=== PATIENT | male | born 1970 | race Caucasian/White ===

== ENCOUNTER 2017-10-10 14:05 | Outpatient (RCR) | payer OTHER ==
[~2017-10-10 14:05] MED LIST: ALPRAZOLAM1 MG PO; NAPROXEN250 MG PO; NEXIUM40 MG PO; NORCO 10-325 T1 EACH PO
== END 2017-10-26 ==
LOC: PT 14:05
PROVIDERS: ATTEND Podiatrist Foot & Ankle Surgery
DX: S82.61XG Displaced fracture of lateral malleolus of right fibula, subsequent encounter for closed fracture with delayed healing (principal); T85.698A Other mechanical complication of other specified internal prosthetic devices, implants and grafts, initial encounter; M25.571 Pain in right ankle and joints of right foot; M25.671 Stiffness of right ankle, not elsewhere classified; R26.2 Difficulty in walking, not elsewhere classified; M62.81 Muscle weakness (generalized)

== ENCOUNTER → 2024-12-31 | Day surgery (SDC) | payer OTHER ==
[~2024-12-31] MED LIST changes: +ABILIFY5 MG PO; +ACETAMINOPHEN 1000 MG/100 ML 100 ML IV ONE; +FENTANYL CITRATE/PF 100MCG/2 ML INJ ONE; +LEXAPRO10 MG PO; +LIDOCAINE HCL 2% LOCAL INJ 5 ML SDV VIAL INJ ONE; +MAG GLYCINATE100 MG; +MIDAZOLAM HCL 2 MG/2 ML VIAL ONE; +ONDANSETRON HCL INJ 2MG/ML 2ML 2 MG/ML VIAL ONE; +PRAMIPEXOLE D0.25 MG PO; +PROPOFOL IV EMULSION 10 MG/ML 20 ML VIAL ONE; +SEVOFLURANE INHAL SOLN 250 ML PEN BTL ONE; +TRAZODONE HCL50 MG PO
[2024-12-31] MEDS: LACTATED RINGER'S 1,000 ML ONE (05:58)
[2024-12-31 07:47] VITALS: TEMP 97.9
[2024-12-31] MEDS: HYDROCODONE/APAP 5MG-325MG TAB ONE (08:10)
[2024-12-31 08:35] VITALS: BP 140/94; PULSE 78; RESP 16; O2SAT 97
== END | disposition home or self-care (01) ==
LOC: OR 05:06
PROVIDERS: ATTEND Podiatrist Foot & Ankle Surgery
DX: M20.21 Hallux rigidus, right foot (principal); G47.33 Obstructive sleep apnea (adult) (pediatric); I10 Essential (primary) hypertension; K21.9 Gastro-esophageal reflux disease without esophagitis; F41.9 Anxiety disorder, unspecified; F17.210 Nicotine dependence, cigarettes, uncomplicated; Z01.810 Encounter for preprocedural cardiovascular examination; Z01.818 Encounter for other preprocedural examination; Z79.899 Other long term (current) drug therapy
CPT/HCPCS: 28291; 71046; 93005; C1776; J0131; J0690; J2003; J2250; J2405; J2704; J3010; J7121

== ENCOUNTER 2025-01-19 11:21 | Emergency (ER) | payer OTHER ==
[~2025-01-19] VITALS: Ht 172.7 cm; Wt 77.1 kg
[~2025-01-19 11:21] MED LIST changes: -ACETAMINOPHEN 1000 MG/100 ML 100 ML IV ONE; -FENTANYL CITRATE/PF 100MCG/2 ML INJ ONE; -LIDOCAINE HCL 2% LOCAL INJ 5 ML SDV VIAL INJ ONE; -MIDAZOLAM HCL 2 MG/2 ML VIAL ONE; -ONDANSETRON HCL INJ 2MG/ML 2ML 2 MG/ML VIAL ONE; -PROPOFOL IV EMULSION 10 MG/ML 20 ML VIAL ONE; -SEVOFLURANE INHAL SOLN 250 ML PEN BTL ONE
[2025-01-19 11:26] VITALS: TEMP 98
[2025-01-19 11:31] VITALS: PULSE 67; RESP 18
[2025-01-19] MEDS: IBUPROFEN 600 MG TAB PO STA (12:03)
[2025-01-19 12:30] VITALS: BP 105/79; PULSE 62; RESP 18; O2SAT 100
[2025-01-19] MEDS ORDERED: ELIQUIS5 MG PO (12:33)
== END 2025-01-19 12:50 | disposition home or self-care (01) ==
LOC: ER 12:02
DX: I82.432 Acute embolism and thrombosis of left popliteal vein (principal); I82.4Z2 Acute embolism and thrombosis of unspecified deep veins of left distal lower extremity; K21.9 Gastro-esophageal reflux disease without esophagitis; F41.9 Anxiety disorder, unspecified; Z87.19 Personal history of other diseases of the digestive system; F17.210 Nicotine dependence, cigarettes, uncomplicated
CPT/HCPCS: 93971; 99284

== ENCOUNTER 2025-02-14 12:35 | Inpatient (IN) | payer OTHER ==
[2025-02-14] VITALS (14 sets, daily range): BP systolic 110–145; BP diastolic 68–96; PULSE 56–93; RESP 11–20; TEMP 97.8–98.3; O2SAT 100
[~2025-02-14] VITALS: Ht 170.2 cm; Wt 77.1 kg
[~2025-02-14 12:35] MED LIST changes: +ELIQUIS5 MG PO
[2025-02-14] MEDS ORDERED: HEPARIN SOD (PORCINE) 1000 UNIT/ML 30ML ONE (13:25)
[2025-02-14] MEDS ORDERED: SODIUM CHLORIDE 0.9% 1000ML 1,000 ML ONE (13:25)
[2025-02-14] MEDS ORDERED: LIDOCAINE HCL 2% LOCAL 20 ML VIAL ONE (13:25)
[2025-02-14] MEDS ORDERED: NITROGLYCERIN/D5W 200 MCG/ML 250 ML ONE (13:25)
[2025-02-14] MEDS ORDERED: IOPAMIDOL 370 MG/ML 100 ML INFUS..BTL INJ ONE ×2 (13:25→13:52)
[2025-02-14] MEDS ORDERED: HEPARIN SOD/SOD CHLORIDE 2,000 ML ONE (13:25)
[2025-02-14] MEDS ORDERED: VERAPAMIL HCL 2.5 MG/ML 2 ML VIAL ONE (13:25)
[2025-02-14] MEDS: SODIUM CHLORIDE 0.9% 1000ML 1,000 ML IV STA (13:29)
[2025-02-14] MEDS ORDERED: ONDANSETRON HCL INJ 2MG/ML 2ML 2 MG/ML VIAL ONE (13:33)
[2025-02-14] MEDS ORDERED: MIDAZOLAM HCL 2 MG/2 ML VIAL ONE (13:41)
[2025-02-14] MEDS ORDERED: FENTANYL CITRATE/PF 100MCG/2 ML INJ ONE (13:42)
[2025-02-14 13:43] LABS: BASOPHILS % 0.2 % (0.0-1.0); EOSINOPHILS # (AUTO) 0.1 (0.0-0.4); EOSINOPHILS % 2.7 % (0.0-6.0); HEMATOCRIT 36.6 % (38.2-49.6); LYMPHOCYTES # (AUTO) 0.8 (1.0-3.2); LYMPHOCYTES % 18.7 % (18.0-39.1); MEAN CORPUSCULAR HEMOGLOBIN 30.1 pg (28-32); MEAN CORPUSCULAR HGB CONC 32.8 g/dL (31-35); MEAN CORPUSCULAR VOLUME 91.7 fL (81-99); MONOCYTES # (AUTO) 0.4 (0.2-0.8); NEUTROPHILS # (AUTO) 2.8 (2.1-6.9); NEUTROPHILS % 68.9 % (38.7-80.0); PLATELET COUNT 197 x10e3/uL (140-360); RED BLOOD COUNT 3.99 x10e6/uL (4.3-5.7); RED CELL DISTRIBUTION WIDTH 13.1 % (11.7-14.4); WHITE BLOOD COUNT 4.11 x10e3/uL (4.8-10.8)
[2025-02-14 14:01] LABS: INR 1.01; PARTIAL THROMBOPLASTIN TIME 31.5 seconds (23.8-35.5); PROTHROMBIN TIME 13.9 seconds (11.9-14.5)
[2025-02-14 14:09] LABS: ALANINE AMINOTRANSFERASE 11 IU/L (0-55); ALBUMIN 3.8 g/dL (3.5-5.0); ALBUMIN/GLOBULIN RATIO 1.3 (0.8-2.0); ALKALINE PHOSPHATASE 61 IU/L (40-150); ANION GAP 13.9 mmol/L (8-16); BILIRUBIN,TOTAL 0.5 mg/dL (0.2-1.2); BLOOD UREA NITROGEN 7 mg/dL (7-26); BUN/CREATININE RATIO 8 (6-25); CALCIUM 8.6 mg/dL (8.4-10.2); CARBON DIOXIDE 24 mmol/L (22-29); CHLORIDE 106 mmol/L (98-107); CREATINE KINASE 122 IU/L (30-200); CREATININE, SERUM 0.92 mg/dL (0.72-1.25); EST GLOMERULAR FILTRATION RATE 98 ML/MIN (>=60); GLUCOSE 96 mg/dL (74-118); MAGNESIUM 1.9 MG/DL (1.3-2.1); POTASSIUM 3.9 mmol/L (3.5-5.1); SODIUM 140 mmol/L (136-145); TOTAL PROTEIN 6.7 g/dL (6.5-8.1)
[2025-02-14 14:15] LABS: TROPONIN I < 0.001 ng/mL (0-0.300)
[2025-02-14] MEDS: APIXABAN 5 MG TABLET PO SCH (17:48)
[2025-02-14] MEDS ORDERED: ALPRAZOLAM0.5 M1 PO (19:20)
[2025-02-14] MEDS ORDERED: TRAZODONE HCL 50 MG TAB PO PRN (20:30)
[2025-02-14] MEDS: HYDROCORTISONE ACETATE 25 MG/SUPP.RECT SUPP RC PRN (20:51)
[2025-02-14] MEDS: ONDANSETRON HCL 4 MG ORAL DISINTEGRATING TAB PO PRN (22:01)
[2025-02-14] MEDS: TRAZODONE HCL 50 MG TAB PO PRN (22:02)
[2025-02-15 04:52] VITALS: BP 119/76; PULSE 57; RESP 18; TEMP 97.8; O2SAT 100
[2025-02-15] MEDS: ALPRAZOLAM 0.5 MG TAB PO PRN (05:18)
[2025-02-15 06:22] LABS: BASOPHILS % 0.2 % (0.0-1.0); EOSINOPHILS # (AUTO) 0.2 (0.0-0.4); EOSINOPHILS % 3.7 % (0.0-6.0); HEMATOCRIT 34.3 % (38.2-49.6); HEMOGLOBIN 11.4 g/dL (14.0-18.0); LYMPHOCYTES # (AUTO) 0.9 (1.0-3.2); LYMPHOCYTES % 22.2 % (18.0-39.1); MEAN CORPUSCULAR HEMOGLOBIN 30.7 pg (28-32); MEAN CORPUSCULAR HGB CONC 33.2 g/dL (31-35); MEAN CORPUSCULAR VOLUME 92.5 fL (81-99); MONOCYTES # (AUTO) 0.5 (0.2-0.8); MONOCYTES % 11.4 % (4.4-11.3); NEUTROPHILS # (AUTO) 2.5 (2.1-6.9); NEUTROPHILS % 62.3 % (38.7-80.0); PLATELET COUNT 171 x10e3/uL (140-360); RED BLOOD COUNT 3.71 x10e6/uL (4.3-5.7); RED CELL DISTRIBUTION WIDTH 12.8 % (11.7-14.4); WHITE BLOOD COUNT 4.05 x10e3/uL (4.8-10.8)
[2025-02-15 06:55] LABS: TROPONIN I 0.068 ng/mL (0-0.300)
[2025-02-15 07:01] LABS: ALBUMIN 3.3 g/dL (3.5-5.0); ALBUMIN/GLOBULIN RATIO 1.2 (0.8-2.0); ANION GAP 13.8 mmol/L (8-16); BILIRUBIN,TOTAL 0.7 mg/dL (0.2-1.2); CALCIUM 8.5 mg/dL (8.4-10.2); CHOL/HDL RATIO 3.5 (3.9-4.7); CREATININE, SERUM 0.91 mg/dL (0.72-1.25); POTASSIUM 3.8 mmol/L (3.5-5.1)
[2025-02-15 07:25] VITALS: BP 130/82; PULSE 84; RESP 16; TEMP 98.1; O2SAT 99
[2025-02-15] MEDS ORDERED: APIXABAN 5 MG TABLET PO SCH (09:00)
[2025-02-15] MEDS: PANTOPRAZOLE SOD 40 MG TABEC PO SCH (09:04)
[2025-02-15 09:56] VITALS: BP 130/82; PULSE 84; RESP 16; TEMP 98.1; O2SAT 99
== END 2025-02-15 11:58 | disposition home or self-care (01) | DRG 281 ==
LOC: ER 13:04 → ERHOLD 13:39 → MED/SURG3 15:19
PROVIDERS: ADMIT Internal Medicine; ATTEND Internal Medicine
PROC: 4A023N7 Measurement of Cardiac Sampling and Pressure, Left Heart, Percutaneous Approach (ICD-10-PCS; principal; 2025-02-14)
PROC: B2111ZZ Fluoroscopy of Multiple Coronary Arteries using Low Osmolar Contrast (ICD-10-PCS; 2025-02-14)
PROC: B2151ZZ Fluoroscopy of Left Heart using Low Osmolar Contrast (ICD-10-PCS; 2025-02-14)
DX: I21.19 ST elevation (STEMI) myocardial infarction involving other coronary artery of inferior wall (principal); I82.442 Acute embolism and thrombosis of left tibial vein; I25.10 Atherosclerotic heart disease of native coronary artery without angina pectoris; I10 Essential (primary) hypertension; K21.9 Gastro-esophageal reflux disease without esophagitis; K58.9 Irritable bowel syndrome, unspecified; F41.9 Anxiety disorder, unspecified; F17.200 Nicotine dependence, unspecified, uncomplicated; Z79.01 Long term (current) use of anticoagulants; Z79.899 Other long term (current) drug therapy
CPT/HCPCS: 36415; 71045; 80053; 80061; 82550; 83735; 83880; 84484; 85025; 85379; 85610; 85730; 93005; 93458; 93971; 99152; 99284; C1760; C1887; J1644; J2003; J2250; J2405; J2470; J7030; Q0162; Q9967

== ENCOUNTER 2025-08-15 06:22 | Inpatient (IN) | payer OTHER ==
[2025-08-10 15:47] LABS: BASOPHILS % 0.5 % (0.0-1.0); EOSINOPHILS % 2.2 % (0.0-6.0); LYMPHOCYTES % 21.8 % (18.0-39.1); MONOCYTES % 9.4 % (4.4-11.3); NEUTROPHILS % 65.9 % (38.7-80.0); RED CELL DISTRIBUTION WIDTH 16.2 % (11.7-14.4)
[2025-08-10 16:09] LABS: EST GLOMERULAR FILTRATION RATE 91.0 ML/MIN (>=60)
[~2025-08-15 06:22] MED LIST changes: +ALPRAZOLAM0.5 M1 PO; +PANTOPRAZOLE SO40 MG PO
[2025-08-15] MEDS ORDERED: ELIQUIS2.5 MG PO (06:55)
[2025-08-15] MEDS ORDERED: DEXAMETHASONE SOD PHOS INJ 4 MG/ML SDV ONE (08:28)
[2025-08-15] MEDS ORDERED: PROPOFOL IV EMULSION 50 ML IV ONE (08:28)
[2025-08-15] MEDS ORDERED: ONDANSETRON HCL INJ 2MG/ML 2ML 2 MG/ML VIAL ONE (08:28)
[2025-08-15] MEDS ORDERED: ROCURONIUM BROMIDE 1 ML IV ONE (08:28)
[2025-08-15] MEDS ORDERED: ACETAMINOPHEN 1000 MG/100 ML 100 ML IV ONE (08:28)
[2025-08-15] MEDS ORDERED: LIDOCAINE HCL 2% LOCAL INJ 5 ML SDV VIAL INJ ONE (08:28)
[2025-08-15] MEDS ORDERED: SUCCINYLCHOLINE CHLORIDE 20 MG/ML 10ML VIAL ONE (08:28)
[2025-08-15] MEDS ORDERED: FENTANYL CITRATE/PF 100MCG/2 ML INJ ONE (08:35)
[2025-08-15] MEDS ORDERED: MIDAZOLAM HCL 2 MG/2 ML VIAL ONE (08:35)
[2025-08-15] MEDS ORDERED: KETOROLAC TROMETHAMINE 30 MG/ML VIAL IV PRN (10:45)
[2025-08-15] MEDS ORDERED: NALOXONE HCL INJ 0.4 MG/ML AMP IV PRN (10:45)
[2025-08-15] MEDS ORDERED: HYDROCODONE/APAP 7.5MG-325MG 1 EA TAB PO PRN (10:45)
[2025-08-15 11:03] VITALS: BP 147/95; PULSE 66; RESP 16; TEMP 97.5; O2SAT 100
[2025-08-15] MEDS: HYDROMORPHONE 0.2MG/ML-SOD CHL 30ML PCA SYRINGE IV PRN (11:05)
[2025-08-15] MEDS: SODIUM CHLORIDE 0.9% 1000ML 1,000 ML IV SCH (13:00)
[2025-08-15] MEDS: LACTATED RINGER'S 1,000 ML ONE (13:19)
[2025-08-15] MEDS: HYDROMORPHONE 0.2MG/ML-SOD CHL 30ML PCA SYRINGE IV ONE (13:19)
[2025-08-15] MEDS: ONDANSETRON HCL INJ 2MG/ML 2ML 2 MG/ML VIAL IV PRN (15:38)
[2025-08-15] MEDS: DOCUSATE SODIUM 100 MG CAP PO SCH (16:10)
[2025-08-15] MEDS: ALPRAZOLAM 0.5 MG TAB PO PRN (16:17)
[2025-08-15] MEDS ORDERED: SEVOFLURANE INHAL SOLN 250 ML PEN BTL ONE (17:22)
[2025-08-15 20:00] VITALS: BP 131/82; PULSE 82; RESP 20; TEMP 98.1; O2SAT 100
[2025-08-15] MEDS: TRAZODONE HCL 50 MG TAB PO SCH (20:12)
[2025-08-15 20:35] VITALS: BP 131/82; PULSE 82; RESP 20; TEMP 98.1; O2SAT 100
[2025-08-16] VITALS (7 sets, daily range): BP systolic 119–135; BP diastolic 77–93; PULSE 64–73; RESP 18–20; TEMP 98–98.8; O2SAT 96–100
[2025-08-16 05:03] LABS: BASOPHILS % 0.1 % (0.0-1.0); EOSINOPHILS % 0.4 % (0.0-6.0); LYMPHOCYTES % 13.8 % (18.0-39.1); MONOCYTES % 8.8 % (4.4-11.3); NEUTROPHILS % 76.7 % (38.7-80.0); RED CELL DISTRIBUTION WIDTH 15.9 % (11.7-14.4)
[2025-08-16 05:51] LABS: EST GLOMERULAR FILTRATION RATE 105.0 ML/MIN (>=60)
[2025-08-16] MEDS: PANTOPRAZOLE SOD 40 MG TABEC PO SCH (08:15)
[2025-08-16] MEDS: HYDROMORPHONE 1MG/1ML INJ IV PRN (21:07)
[2025-08-17] VITALS: BP 120/75; PULSE 65; RESP 20; TEMP 97.7; O2SAT 100
[2025-08-17 04:00] VITALS: BP 125/91; PULSE 85; RESP 20; TEMP 98; O2SAT 100
[2025-08-17 07:30] VITALS: BP 119/75; PULSE 71; RESP 16; TEMP 98.3; O2SAT 100
[2025-08-17 08:23] VITALS: BP 119/75; PULSE 71; RESP 16; TEMP 98.3; O2SAT 100
[2025-08-17 11:00] VITALS: BP 110/80; PULSE 69; RESP 16; TEMP 98.1; O2SAT 100
== END 2025-08-17 11:30 | disposition home or self-care (01) | DRG 348 ==
LOC: OR 06:22 → PACU V 11:22 → MED/SURG 11:33 → INTOOBSV 08-16 08:54 → OBSVTOIN 08-16 08:54
PROVIDERS: ADMIT Surgery; ATTEND Surgery
PROC: 06LY7CC Occlusion of Hemorrhoidal Plexus with Extraluminal Device, Via Natural or Artificial Opening (ICD-10-PCS; 2025-08-15)
PROC: 0DQQXZZ Repair Anus, External Approach (ICD-10-PCS; 2025-08-15)
PROC: 06BY0ZC Excision of Hemorrhoidal Plexus, Open Approach (ICD-10-PCS; principal; 2025-08-15 09:03)
DX: K64.5 Perianal venous thrombosis (principal); I96 Gangrene, not elsewhere classified; K64.4 Residual hemorrhoidal skin tags
CPT/HCPCS: 36415; 80048; 85025; 88304; 93005; G0378; J0330; J0694; J1100; J1171; J2003; J2250; J2405; J2470; J7030